=== PATIENT | male | born 1975 | race Caucasian/White ===

== ENCOUNTER → 2023-05-20 | Outpatient (CLI) | payer OTHER ==
[~2023-05-20] MED LIST: PROHANCE 279.3MG/ML 15ML VIAL ONE; PROHANCE 279.3MG/ML 5ML VIAL ONE
== END ==
LOC: M PLAIMG 13:52
PROVIDERS: ATTEND Neurological Surgery
DX: M62.50 Muscle wasting and atrophy, not elsewhere classified, unspecified site (principal); M48.02 Spinal stenosis, cervical region; R53.1 Weakness
CPT/HCPCS: 71552; A9576

== ENCOUNTER → 2023-05-25 | Outpatient (CLI) | payer OTHER | LOC: M RAD 07:24 | PROVIDERS: ATTEND Family Medicine | DX: M75.102 Unspecified rotator cuff tear or rupture of left shoulder, not specified as traumatic (principal) ==

== ENCOUNTER → 2023-11-18 | Outpatient (CLI) | payer BC | LOC: M PLAIMG 14:23 | PROVIDERS: ATTEND Psychiatry & Neurology Neurology | DX: M54.17 Radiculopathy, lumbosacral region (principal) ==

== ENCOUNTER → 2024-03-16 | Outpatient (CLI) | payer BC, OTHER, SELFPAY | LOC: M RAD 12:56 | PROVIDERS: ATTEND Neurological Surgery | DX: M50.10 Cervical disc disorder with radiculopathy, unspecified cervical region (principal); M50.21 Other cervical disc displacement, high cervical region; M25.78 Osteophyte, vertebrae; M50.223 Other cervical disc displacement at C6-C7 level ==

== ENCOUNTER → 2024-09-27 | Outpatient (CLI) | payer BC | LOC: M PLARAD 14:16 | PROVIDERS: ATTEND Nurse Practitioner Family | DX: M47.812 Spondylosis without myelopathy or radiculopathy, cervical region (principal); M48.02 Spinal stenosis, cervical region; M50.10 Cervical disc disorder with radiculopathy, unspecified cervical region ==

== ENCOUNTER → 2024-10-30 | Outpatient (CLI) | payer OTHER | LOC: M PLAIMG 08:10 | PROVIDERS: ATTEND Nurse Practitioner Family | DX: M50.10 Cervical disc disorder with radiculopathy, unspecified cervical region (principal) ==

== ENCOUNTER → 2024-11-28 | Outpatient (REF) | LOC: M PLAIMG 11:55 | PROVIDERS: ATTEND Internal Medicine | DX: M54.50 Low back pain, unspecified (principal) ==